=== PATIENT | female | born 1950 | race Caucasian/White ===

== ENCOUNTER 2020-11-10 19:47 | Inpatient (IN) ==
[2020-11-13] MEDS ORDERED: Nitroglycerin 0.4 MG TAB.SUBL SL PRN (21:11)
[2020-11-13] MEDS ORDERED: NON-FORMULARY MEDICATION 1 EACH EACH (Omega-3/Dha/Epa/Fish Oil [Cvs Fish Oil 1,000 Mg Soft PO SCH (21:30)
[2020-11-13] MEDS: *HR* OxyCODONE/APAP 5/325 TABLET PO PRN (22:29)
[2020-11-13] MEDS: Psyllium 1 PACKET POWD.PACK PO SCH (22:30)
[2020-11-13] MEDS: Melatonin 3 MG TABLET PO SCH (22:30)
[2020-11-14 07:08] LABS: Basophils % 0.7 %; Eosinophils # 0.3 K/mcL (0.0-0.6); Eosinophils % 5.5 %; Hematocrit 23.6 % (35.3-44.9); Hemoglobin 7.8 g/dL (11.5-15.4); Immature Granulocytes % 0.7 % (0-4); Lymphocytes # 0.7 K/mcL (0.6-4.6); Lymphocytes % 11.7 %; Mean Corpuscular HGB Conc 33.1 g/dL (31.6-35.5); Mean Corpuscular Hemoglobin 31.2 pg (28.0-33.3); Mean Corpuscular Volume 94.4 fL (83.0-100.0); Mean Platelet Volume 10.4 fL (9.4-12.4); Monocytes # 0.5 K/mcL (0.0-1.3); Monocytes % 7.6 %; Neutrophils # 4.5 K/mcL (1.6-8.9); Platelet Count 415 K/mcL (140-400); Red Cell Distribution Width 14.4 % (11.5-14.5); Segmented Neutrophils % 73.8 %; White Blood Count 6.1 K/mcL (4.3-11.1)
[2020-11-14 07:31] LABS: Calcium 8.2 mg/dL (8.6-10.3); Potassium 4.7 mEq/L (3.5-5.1)
[2020-11-14] MEDS: Psyllium 1 PACKET POWD.PACK PO SCH ×2 (08:20→21:03)
[2020-11-14] MEDS: BuPROPion XL (24 HR) 150 MG TABLET PO SCH (08:22)
[2020-11-14] MEDS: Lactobacillus 1 EACH CAP.SPRINK PO SCH (08:23)
[2020-11-14] MEDS: lisinopriL 20 MG TABLET PO SCH (08:23)
[2020-11-14] MEDS: Aspirin Enteric Coated 81 MG Tablet PO SCH (08:23)
[2020-11-14] MEDS: Cholecalciferol (D-3) 1,000 UNIT (25MCG) TABLET PO SCH (08:23)
[2020-11-14] MEDS: atenoloL 25 MG TABLET PO SCH (08:23)
[2020-11-14] MEDS ORDERED: Nitroglycerin 0.4 MG TAB.SUBL SL ONE (10:53)
[2020-11-14] MEDS ORDERED: Bisacodyl 10 MG RECTAL SUPPOSITORY RC PRN (11:01)
[2020-11-14 11:09] LABS: Basophils % 0.3 %; Eosinophils # 0.3 K/mcL (0.0-0.6); Hematocrit 26.3 % (35.3-44.9); Hemoglobin 8.5 g/dL (11.5-15.4); Immature Granulocytes % 0.6 % (0-4); Lymphocytes # 0.7 K/mcL (0.6-4.6); Lymphocytes % 9.3 %; Mean Corpuscular HGB Conc 32.3 g/dL (31.6-35.5); Mean Corpuscular Hemoglobin 30.8 pg (28.0-33.3); Mean Corpuscular Volume 95.3 fL (83.0-100.0); Mean Platelet Volume 10.3 fL (9.4-12.4); Monocytes # 0.4 K/mcL (0.0-1.3); Monocytes % 5.7 %; Neutrophils # 6.2 K/mcL (1.6-8.9); Platelet Count 499 K/mcL (140-400); Red Blood Count 2.76 M/mcL (3.82-4.97); Red Cell Distribution Width 14.5 % (11.5-14.5); Segmented Neutrophils % 80.1 %; White Blood Count 7.8 K/mcL (4.3-11.1)
[2020-11-14] MEDS: Melatonin 3 MG TABLET PO SCH (20:59)
[2020-11-14] MEDS: *HR* OxyCODONE/APAP 5/325 TABLET PO PRN (21:00)
[2020-11-14] MEDS: *HR* LORazepam 0.5 MG TABLET PO PRN (21:01)
[2020-11-15] MEDS: lisinopriL 20 MG TABLET PO SCH (08:12)
[2020-11-15] MEDS: Psyllium 1 PACKET POWD.PACK PO SCH ×2 (08:13→20:48)
[2020-11-15] MEDS: Lactobacillus 1 EACH CAP.SPRINK PO SCH (08:13)
[2020-11-15] MEDS: BuPROPion XL (24 HR) 150 MG TABLET PO SCH (08:13)
[2020-11-15] MEDS: atenoloL 25 MG TABLET PO SCH (08:13)
[2020-11-15] MEDS: Cholecalciferol (D-3) 1,000 UNIT (25MCG) TABLET PO SCH (08:13)
[2020-11-15] MEDS: Aspirin Enteric Coated 81 MG Tablet PO SCH (08:13)
[2020-11-15] MEDS: *HR* OxyCODONE/APAP 5/325 TABLET PO PRN ×2 (08:20→14:20)
[2020-11-15] MEDS: Melatonin 3 MG TABLET PO SCH (20:48)
[2020-11-15] MEDS: *HR* LORazepam 0.5 MG TABLET PO PRN (20:48)
[2020-11-16] MEDS: lisinopriL 20 MG TABLET PO SCH (09:06)
[2020-11-16] MEDS: Lactobacillus 1 EACH CAP.SPRINK PO SCH (09:06)
[2020-11-16] MEDS: Cholecalciferol (D-3) 1,000 UNIT (25MCG) TABLET PO SCH (09:07)
[2020-11-16] MEDS: BuPROPion XL (24 HR) 150 MG TABLET PO SCH (09:07)
[2020-11-16] MEDS: atenoloL 25 MG TABLET PO SCH (09:07)
[2020-11-16] MEDS: Psyllium 1 PACKET POWD.PACK PO SCH ×2 (09:07→20:21)
[2020-11-16] MEDS: Aspirin Enteric Coated 81 MG Tablet PO SCH (09:07)
[2020-11-16] MEDS: *HR* OxyCODONE/APAP 5/325 TABLET PO PRN ×2 (09:11→20:18)
[2020-11-16] MEDS: Ondansetron ODT 4 MG TAB.RAPDIS SL PRN (18:32)
[2020-11-16] MEDS: Melatonin 3 MG TABLET PO SCH (20:18)
[2020-11-16] MEDS: *HR* LORazepam 0.5 MG TABLET PO PRN (20:18)
[2020-11-16] MEDS: Sennosides/Docusate Sodium TABLET PO SCH (20:21)
[2020-11-17] MEDS: Aspirin Enteric Coated 81 MG Tablet PO SCH (08:48)
[2020-11-17] MEDS: lisinopriL 20 MG TABLET PO SCH (08:48)
[2020-11-17] MEDS: Cholecalciferol (D-3) 1,000 UNIT (25MCG) TABLET PO SCH (08:49)
[2020-11-17] MEDS: Lactobacillus 1 EACH CAP.SPRINK PO SCH (08:49)
[2020-11-17] MEDS: atenoloL 25 MG TABLET PO SCH (08:49)
[2020-11-17] MEDS: Psyllium 1 PACKET POWD.PACK PO SCH ×2 (08:49→22:23)
[2020-11-17] MEDS: Sennosides/Docusate Sodium TABLET PO SCH ×2 (08:49→22:23)
[2020-11-17] MEDS: BuPROPion XL (24 HR) 150 MG TABLET PO SCH (08:49)
[2020-11-17] MEDS: Ondansetron ODT 4 MG TAB.RAPDIS SL PRN ×2 (08:52→16:32)
[2020-11-17] MEDS: *HR* LORazepam 0.5 MG TABLET PO PRN (22:23)
[2020-11-17] MEDS: Melatonin 3 MG TABLET PO SCH (22:23)
[2020-11-18] MEDS: *HR* OxyCODONE/APAP 5/325 TABLET PO PRN ×2 (04:29→13:21)
[2020-11-18 08:51] LABS: Hematocrit 24.4 % (35.3-44.9); Mean Corpuscular HGB Conc 32.8 g/dL (31.6-35.5); Mean Corpuscular Hemoglobin 31.4 pg (28.0-33.3); Mean Corpuscular Volume 95.7 fL (83.0-100.0); Mean Platelet Volume 9.7 fL (9.4-12.4); Platelet Count 501 K/mcL (140-400); Red Blood Count 2.55 M/mcL (3.82-4.97); Red Cell Distribution Width 14.6 % (11.5-14.5); White Blood Count 5.9 K/mcL (4.3-11.1)
[2020-11-18 09:19] LABS: Calcium 8.4 mg/dL (8.6-10.3); Magnesium 1.8 mg/dL (1.6-2.6); Potassium 4.4 mEq/L (3.5-5.1)
[2020-11-18] MEDS: Sennosides/Docusate Sodium TABLET PO SCH ×2 (10:45→21:17)
[2020-11-18] MEDS: Aspirin Enteric Coated 81 MG Tablet PO SCH (10:45)
[2020-11-18] MEDS: Lactobacillus 1 EACH CAP.SPRINK PO SCH (10:45)
[2020-11-18] MEDS: atenoloL 25 MG TABLET PO SCH (10:45)
[2020-11-18] MEDS: Psyllium 1 PACKET POWD.PACK PO SCH ×2 (10:46→21:18)
[2020-11-18] MEDS: BuPROPion XL (24 HR) 150 MG TABLET PO SCH (10:46)
[2020-11-18] MEDS: lisinopriL 20 MG TABLET PO SCH (10:46)
[2020-11-18] MEDS: Cholecalciferol (D-3) 1,000 UNIT (25MCG) TABLET PO SCH (10:46)
[2020-11-18] MEDS: *HR* LORazepam 0.5 MG TABLET PO PRN (21:18)
[2020-11-18] MEDS: Melatonin 3 MG TABLET PO SCH (21:18)
[2020-11-19] MEDS: Aspirin Enteric Coated 81 MG Tablet PO SCH (07:45)
[2020-11-19] MEDS: Sennosides/Docusate Sodium TABLET PO SCH ×2 (07:45→21:06)
[2020-11-19] MEDS: BuPROPion XL (24 HR) 150 MG TABLET PO SCH (07:46)
[2020-11-19] MEDS: atenoloL 25 MG TABLET PO SCH (07:47)
[2020-11-19] MEDS: Lactobacillus 1 EACH CAP.SPRINK PO SCH (07:47)
[2020-11-19] MEDS: Cholecalciferol (D-3) 1,000 UNIT (25MCG) TABLET PO SCH (07:47)
[2020-11-19] MEDS: lisinopriL 20 MG TABLET PO SCH (07:47)
[2020-11-19] MEDS: Psyllium 1 PACKET POWD.PACK PO SCH ×2 (08:35→21:06)
[2020-11-19] MEDS: *HR* OxyCODONE/APAP 5/325 TABLET PO PRN (11:11)
[2020-11-19] MEDS: Ondansetron ODT 4 MG TAB.RAPDIS SL PRN ×2 (11:16→21:06)
[2020-11-19] MEDS: Melatonin 3 MG TABLET PO SCH (21:05)
[2020-11-19] MEDS: *HR* LORazepam 0.5 MG TABLET PO PRN (22:32)
[2020-11-20] MEDS: *HR* OxyCODONE/APAP 5/325 TABLET PO PRN (07:00)
[2020-11-20 07:20] VITALS: BP 150/72
[2020-11-20] MEDS: lisinopriL 20 MG TABLET PO SCH (09:07)
[2020-11-20] MEDS: BuPROPion XL (24 HR) 150 MG TABLET PO SCH (09:07)
[2020-11-20] MEDS: Psyllium 1 PACKET POWD.PACK PO SCH (09:07)
[2020-11-20] MEDS: Aspirin Enteric Coated 81 MG Tablet PO SCH (09:07)
[2020-11-20] MEDS: Cholecalciferol (D-3) 1,000 UNIT (25MCG) TABLET PO SCH (09:07)
[2020-11-20] MEDS: Lactobacillus 1 EACH CAP.SPRINK PO SCH (09:07)
[2020-11-20] MEDS: atenoloL 25 MG TABLET PO SCH (09:07)
[2020-11-20] MEDS: Sennosides/Docusate Sodium TABLET PO SCH (09:08)
[2020-11-20] MEDS ORDERED: Acetaminophen 325 MG TABLET PO ONE (11:09)
== END 2020-11-20 13:27 | disposition home or self-care (01) | DRG 949 ==
LOC: INPPIK 11-13 20:06
PROVIDERS: ADMIT Family Medicine; ATTEND Family Medicine